=== PATIENT | female | born 1995 | race Caucasian/White ===

== ENCOUNTER 2020-10-02 18:02 | Emergency (ER) | payer MEDICAID ==
[~2020-10-02] VITALS: Ht 160 cm; Wt 56.7 kg
--- NOTE | 2020-10-02 18:03 | NUR ---
Patient wheelchair assisted to bed 01
[2020-10-02 18:05] VITALS: BP 144/80
--- NOTE | 2020-10-02 18:24 | NUR ---
EKG PERFORMED AT BEDSIDE. EKG READ SINUS RHYTHM @ 98
== END 2020-10-02 18:46 | disposition home or self-care (01) ==
LOC: MED 18:02
DX: F41.9 Anxiety disorder, unspecified (principal)
CPT/HCPCS: 93005; 99282; 99283

== ENCOUNTER 2021-01-01 20:36 | Emergency (ER) | payer SELFPAY ==
[~2021-01-01] VITALS: Ht 157.5 cm; Wt 56.7 kg
[2021-01-01 20:42] VITALS: BP 137/86
--- NOTE | 2021-01-01 20:42 | NUR ---
TO BED AMBULATORY
--- NOTE | 2021-01-01 21:02 | NUR ---
SEE ASSESSMENT FOR PATIENT INFORMATION.
[2021-01-01] MEDS ORDERED: KETOROLAC 60 MG/2 ML VIAL IM ONE (21:25)
--- NOTE | 2021-01-01 21:35 | NUR ---
Dr. Velez examining patient.
[2021-01-01] MEDS ORDERED: PHEN-1877 PO ×2 (21:43→22:02)
[2021-01-01] MEDS ORDERED: CIPR500T4 PO ×2 (21:43→22:02)
[2021-01-01] MEDS ORDERED: IBUP-2213 PO ×2 (21:43→22:02)
[2021-01-01 22:01] VITALS: BP 137/86
--- NOTE | 2021-01-01 22:01 | NUR ---
Patient discharged with v/s stable. Written and verbal after care instructions given and explained. Patient alert, oriented and verbalized understanding of instructions. Ambulatory with steady gait. All questions addressed prior to discharge. ID band removed. Patient advised to follow up with PMD. Rx of CIPRO, IBUPROFEN, PYRIDIUM given. Patient educated on indication of medication including possible reaction and side effects. Opportunity to ask questions provided and answered.
== END 2021-01-01 22:01 | disposition home or self-care (01) ==
LOC: MED 20:36
DX: N39.0 Urinary tract infection, site not specified (principal)
CPT/HCPCS: 81002; 81025; 96372; 99283; J1885

== ENCOUNTER 2022-06-19 20:28 | Emergency (ER) | payer MEDICAID ==
[~2022-06-19] VITALS: Ht 160 cm; Wt 56.7 kg
[~2022-06-19 20:28] MED LIST: CIPR500T4 PO; IBUP-2213 PO; PHEN-1877 PO
[2022-06-19 21:49] VITALS: BP 140/82
--- NOTE | 2022-06-19 21:55 | NUR ---
PT TO LOBBY AWAITING EXAMINATION.
--- NOTE | 2022-06-19 23:30 | NUR ---
PT CALLED. NO ANSWER
[2022-06-19 23:31] LABS: APPEARANCE,URINE CLEAR (CLEAR); BILIRUBIN,URINE NEGATIVE (NEGATIVE); BLOOD, URINE 1+ (NEGATIVE); COLOR,URINE YELLOW (YELLOW); LEUKOCYTE ESTERASE ,URINE 2+ (NEGATIVE); NITRITE, URINE NEGATIVE (NEGATIVE); UGLUCOSE NEGATIVE (NEGATIVE)
[2022-06-19 23:43] LABS: RBC,URINE 0-5 /HPF (0-5); WBC,URINE 20-60 /HPF (0-5)
--- NOTE | 2022-06-20 00:10 | NUR ---
PT CALLED NO ANSWER
--- NOTE | 2022-06-20 00:40 | NUR ---
PT CALLED NO ANSWER.
--- NOTE | 2022-06-20 00:40 | NUR ---
PATIENT LEFT WITHOUT BEING SEEN BY DR. LÓPEZ. NO FURTHER CARE PROVIDED FOR PATIENT.
== END 2022-06-20 00:40 | disposition left against medical advice (07) ==
LOC: MED 20:28
DX: R30.9 Painful micturition, unspecified (principal); R11.0 Nausea; Z53.21 Procedure and treatment not carried out due to patient leaving prior to being seen by health care provider
CPT/HCPCS: 81001; 81002; 81025; 87086